=== PATIENT | female | born 1985 | race Caucasian/White ===

== ENCOUNTER → 2021-11-07 13:35 | Outpatient (CLI) | payer BC, SELFPAY ==
--- NOTE | ~2021-11-07 | US_ITS ---
US soft tissue chest 11/07/2021 13:54 Indication: Palpable soft tissue abnormality left upper chest Procedure: High-resolution Limited ultrasound of the area of palpable concern in the left chest Comparison: No prior studies for comparison. Findings: In the area of palpable concern there is an oval encapsulated slightly hyperechoic mass wit h horizontally oriented striations, compatible with lipoma measuring 2.4 x 1.9 x 0.7 cm. Impression: 1: Left chest wall mass corresponding to the palpable finding, most compatible with lipoma. Recommend follow-up ultrasound as clinically indicated. Reviewed, dictated and finalized at location B. Impression: 1: Left chest wall mass corresponding to the palpable finding, most compatible with lipoma. Recommend follow-up ultrasound as clinically indicated.
== END ==
PROVIDERS: PCP Physician Assistant; Visit Provider Physician Assistant
DX: R22.9 Localized swelling, mass and lump, unspecified (principal)
CPT/HCPCS: 76604

== ENCOUNTER 2024-10-04 08:34 | Outpatient (CLI) | payer BC, SELFPAY ==
--- OUTSIDE RECORDS SUMMARY | 2024-10-04 09:12 | XMS_ITS | Data Portability ---
Author Organization [facility] Address [address] [place] [address] Assessment No assessment recorded. Plan of Treatment Reminders Order Date Submit Date Provider Last Modified By Organization Details Last Modified Time Details Appointments ANY 15 2024 09:30A M ZAHEER Moore Not available Not available Not available Lab TSH + free T4, serum 2023 024 [employer] [facility], [address], [address], 03/11/2024 12:48:56 CMP, serum or plasma 2023 024 [employer] [facility], [address], [address], 03/11/2024 12:48:56 CBC w/ auto diff 2023 024 [employer] [facility], [address], [address], 03/11/2024 12:48:56 vitamin B12 + folate, serum or blood 2023 024 [employer] [facility], [address], [address], 03/11/2024 12:48:56 lipid panel, serum 2023 024 [employer] [facility], [address], [address], 03/11/2024 12:48:56 HbA1c (hemoglob in A1c), blood 2023 024 [facility], [address] [address], [place], [address], 03/11/2024 12:48:56 insulin, serum 2023 024 [facility], [address] [facility] [address], [place], [address], 03/11/2024 12:48:56 Referral None recorded. Procedures home sleep testing (PROC) 2023 024 [facility], [address] [facility], [place], [address], 09/30/2024 16:34:27 Surgeries None recorded. Imaging home sleep study 2023 024 [place] [id number] [facility] ([facility]), [facility] [place], [address], 08/02/2024 12:42:37 Medication Orders sertralin e 100 mg tablet 2023 024 [id number], [address], [place], [phone], 07/25/2024 10:55:26 Wegovy 1 mg/0.5 mL subcutane ous pen injector 2023 025 [facility] #[id number], [address], [place], [phone], 09/09/2024 18:27:22 Patient TargetsNo targets recorded. Patient Instructions Encounter Date Encounter Id Patient Instructions Last Modified By Organization Details Last Modified Time 12/16/2023 [id number] A healthy lifestyle: care instructions [email or web address] Not available 12/23/2023 13:44:26 Reason for Referral None Reported. Results Created Date Observation Date Name Description Value Unit Range Abnormal Flag Note LastModifiedBy Organization Detail LastModifiedTime Result Notes None recorded. Problems Name Problem SNOMED Code Status Onset Date Resolution Date Notes Provider Name and Address Organization Details Recorded Time Generalized anxiety disorder 65613519 Active 2023 ZAHEER Moore Attn: Accountin g,[address] [facility], [place], [address], [facility] 4 13:44:10 Sleep apnea 45097710 Active 2023 ZAHEER Moore Attn: Accountin g,[address] [facility], [place], [address], [facility] - [facility] 4 13:44:11 Body mass index 30+ - obesity 332631711 Active 2023 ZAHEER Moore Attn: Accountin g,[address] [facility], [place], [address], [facility] - [facility] 4 13:44:12 Obesity 608501379 Active 2023 ZAHEER Moore Attn: Accountin g,[address] [facility], [place], [address], [facility] - [facility] 4 13:44:28 Long-term drug therapy Active 2023 ZAHEER Moore Attn: Accountin g,[address] [facility], [place], [address], [place] - [facility] 4 10:54:35 Problem Notes None recorded. Procedures Surgical History Date Name Laterality Status Provider Name and Address Organization Details Recorded Time hernia repair completed Kade Whitlock [place] [facility] 12/16/2023 16:50:17 Imaging Results None recorded. Procedure Notes None recorded. Medical Equipment None Reported. Allergies No known drug allergies Medications Name Sig Start Date Stop Date Status Note LastModified by Organization Details LastModified Time tretinoin 0.025 % topical cream 12/15 completed Not Available Not Available Not Available minocycline 100 mg capsule 12/15 completed Not Available Not Available Not Available sertraline 100 mg tablet Take 1 tablet every day by oral route. active Not Available Not Available No t Available metronidazo le 500 mg tablet 07/25 completed Not Available Not Available Not Available propranolol 10 mg tablet Take 1 tablet every day by oral route as needed, for public speaking. active Not Available Not Available No t Available triamcinolo ne acetonide 0.025 % topical cream 12/15 completed Not Available Not Available Not Available tacrolimus 0.1 % topical ointment 07/25 completed Not Available Not Available Not Available triamcinolo ne acetonide 0.1 % topical ointment 07/25 completed Not Available Not Available Not Available scopolamine 1 mg over 3 days transdermal patch Apply 1 patch every 72 hours by transderm al route. 07/25 completed Not Available Not Available Not Available intrauterin e device (IUD) Take by intrauter ine route. active Not Available Not Available No t Available amoxicillin 875 mg-potassiu m clavulanate 125 mg tablet 07/25 completed Not Available Not Available Not Available clindamycin 1 % lotion 07/25 completed Not Available Not Available Not Available Simpesse 0.15 mg-30 mcg (84)/10 mcg(7) tablets,3 month dose pack 08/14 completed Not Available Not Available Not Available Wegovy 2.4 mg/0.75 mL subcutaneou s pen injector Inject by subcutane ous route for 28 days. 07/25 completed Not Available Not Available Not Available Wegovy 1.7 mg/0.75 mL subcutaneou s pen injector 12/15 completed Not Available Not Available Not Available Wegovy 1 mg/0.5 mL subcutaneou s pen injector Inject 1 mg every week by subcutane ous route. 09/09 completed Not Available Not Available Not Available Zepbound 5 mg/0.5 mL subcutaneou s pen injector Inject 5 mg every week by subcutane ous route. 2024 active Not Available Not Available Not Avai lable Zepbound 2.5 mg/0.5 mL subcutaneou s pen injector Inject 2.5 mg every week by subcutane ous route. 09/09 completed Not Available Not Available Not Available Vitals Date Recorded Body height Body mass index (BMI) Body weight Oxygen saturation Oxygen saturation in Arterial blood by Pulse oximetry Heart rate Respiratory rate Provider Name and Address Organization Details Last Updated DateTime 4 157.48 cm 34 kg/m2 81639.1 8 g 98 % 98 % 97 /min 20 /min Kade Whitlock MA [facility] 16:29:16 Date Recorded Systolic blood pressure Diastolic blood pressure Systolic blood pressure Diastolic blood pressure Provider Name and Address Organization Details Last Updated DateTime 12/16/2023 130 mm[Hg] 90 mm[Hg] 124 mm[Hg] 86 mm[Hg] ZAHEER Moore Attn: Accounting ,[address] [place], [address] , [facility] 16:52:36 Date Recorded Body height Body mass index (BMI) Body weight Respiratory rate Oxygen saturation Oxygen saturation in Arterial blood by Pulse oximetry Heart rate Systolic blood pressure Diastolic blood pressure Provider Name and Address Organization Details Last Updated DateTime 4 157.48 cm 35.5 kg/m2 80536.9 2 g 20 /min 99 % 99 % 72 /min 126 mm[Hg] 82 mm[Hg] Kade Whitlock MA [facility] 10:34:38 Date Recorded Systolic blood pressure Diastolic blood pressure Provider Name and Address Organization Details Last Updated DateTime 07/25/2024 120 mm[Hg] 80 mm[Hg] ZAHEER Moore Attn: Accounting, [place], [address], [facility] 07/25/2024 11:03:06 Social History Question Answer Notes LastModified by Organizat ion Details LastModified Time Tobacco Smoking Status Never Smoker Kade Whitlock MA [facility], [facility] 12/16/2023 16:27:22 Do You Have An Advance Directive? No Information not available 12/16/2023 What Is Your Level Of Alcohol Consumption? Occasional 2x A Week Information not available 12/16/2023 Are You Blind Or Do You Have Difficulty Seeing? No Near Sided Vison Information not available 12/16/2023 What Is Your Level Of Caffeine Consumption? Occasional 1 Cup Of Coffee Information not available 12/16/2023 In The 14 Days Before Symptom Onset, Have You Had Close Contact With A Laboratory-confir med COVID-19 While That Case Was Ill? No Information not available 12/16/2023 In The 14 Days Before Symptom Onset, Have You Had Close Contact With A Person Who Is Under Investigation For COVID-19 While That Person Was Ill? No Information not available 12/16/2023 Have You Been To An Area Known To Be High Risk For COVID-19? No Information not available 12/16/2023 Are You Currently Employed? Yes Information not available 12/16/2023 Are You Deaf Or Do You Have Serious Difficulty Hearing? No Information not available 12/16/2023 What Type Of Diet Are You Following? REGULAR Information not available 12/16/2023 What Is The Highest Grade Or Level Of School You Have Completed Or The Highest Degree You Have Received? 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 No Information not available 12/16/2023 What Was The Date Of Your Most Recent Tobacco Screening? 07/25/2024 Information not available 07/25/2024 Do You Use Your Seat Belt Or Car Seat Routinely? Yes Information not available 12/16/2023 Do You Have Smoke And Carbon Monoxide Detectors In Your Home? Yes Information not available 12/16/2023 Do You Use Any Illicit Or Recreational Drugs? No Information not available 12/16/2023 Do You Use Sunscreen Routinely? Yes Information not available 12/16/2023 Has Tobacco Cessation Counseling Been Provided? Yes Information not available 12/16/2023 On What Date Was Tobacco Cessation Counseling Provided? 07/25/2024 Information not available 07/25/2024 Do You Or Have You Ever Used Any Other Forms Of Tobacco Or Nicotine? No Information not available 12/16/2023 Sex: Female Functional Status Question Answer Note LastModified by Organizat ion Details LastModified Time Are you able to care for yourself? Yes Information not available 12/16/2023 What is your exercise level? Moderate 3-4x a week Information not available 12/16/2023 Mental Status None recorded. Family History Relationship Description Onset Age of this Age Resolved Age Notes LastModified by Organization Details LastModified Time Maternal Uncle Alcohol abuse [email or web address] Not available 2023 16:50:33 Paternal Uncle Alcohol abuse tcarterma Not available 2023 16:50:33 Son Attention deficit hyperactivit y disorder tcarterma Not available 12/15 16:50:39 Mother Depressive disorder tcarterma Not available 2023 16:50:44 Mother Disorder of thyroid gland tcarterma Not available 2023 16:50:51 Mother Heart disease tcarterma Not available 2023 16:50:57 Mother Hypertensive disorder tcarterma Not available 2023 16:51:05 Father Heart disease tcarterma Not available 2023 16:50:57 Father Hypertensive disorder tcarterma Not available 2023 16:51:05 Medical History Condition Response Coronary Artery Disease N Other N High Blood Pressure N Atrial Fibrillation N Kidney or Bladder Problems N Thyroid Problems N GI Problems N Depression N COPD N Blood Clots N Skin Problems Y Anemia N Heart Attack (ME) N Anxiety Disorder N Diabetes N Muscle, Joint, or Bone Problems N Seizures/Epilepsy N Acid Reflux (GERD) N Cancer N Stroke N Asthma N Allergies N High Cholesterol N Hepatitis N Liver Disease N Headaches Y Heart Failure N Osteoporosis N Gynecological History Statement/Question Response Menses Monthly N Current Control Method BCPs Obstetrics History GPAL:G 2 P 2 0 0 2 Type Value Full Term 2 Induced 0 Spontaneous 0 Premature 0 Living 2 Total 2 Immunizations Vaccine Type Date Status Note Provider Nam e and Address Organization Details Recorded Time Influenza, split virus, quadrivalent, preservative 9 completed Kade Whit[place], [place] [facility] 07/20/2024 09:04:07 Rho(D)-IG 8 completed Kade [place] [facility] 07/20/2024 09:04:07 Rho(D)-IG 8 completed Kade [place] [facility] 07/20/2024 09:04:07 Influenza, MDCK, quadrivalent, PF 1 completed Kade Whit[place] [facility] 07/20/2024 09:04:07 COVID-19, mRNA, LNP-S, PF, 100 mcg/0.5mL dose or 50 mcg/0.25mL dose 1 completed Kade [place] [facility] 07/20/2024 09:04:07 COVID-19, mRNA, LNP-S, PF, 100 mcg/0.5mL dose or 50 mcg/0.25mL dose 1 completed Kade Whit[place] [facility] 07/20/2024 09:04:07 COVID-19, mRNA, LNP-S, PF, 100 mcg/0.5mL dose or 50 mcg/0.25mL dose 1 completed Kade [place] [facility] 07/20/2024 09:04:07 pneumococcal polysaccharide PPV23 6 completed Kade [place] [facility] 07/20/2024 09:04:07 Tdap 4 completed [place]ade [place] [facility] 07/20/2024 09:04:07 Tdap 8 completed Kade [place] [facility] 07/20/2024 09:04:07 Tdap 3 completed Kade [place] [facility] 07/20/2024 09:04:07 Influenza, split virus, trivalent, PF 7 completed [place]ade [place] [facility] 07/20/2024 09:04:07 Hib (PRP-OMP) 6 completed Kade [place] [facility] 07/20/2024 09:04:07 Influenza, split virus, quadrivalent, PF 0 completed Kade Whitlock MA null, [facility] 07/20/2024 09:04:07 Influenza, split virus, quadrivalent, PF 2 completed Kade Whitlock MA null, [facility] 07/20/2024 09:04:07 Influenza, split virus, quadrivalent, PF 3 completed Kade Whitlock MA null, [facility] 07/20/2024 09:04:07 Past Encounters Encounter ID Performer Location Encounter Start Date Encounter Closed Date Diagnosis/Indication Diagnosis SNOMED-CT Code Diagnosis ICD10 Code Diagnosis Note [id number] ZAHEER Moore [facility] [address] [place] [address] 12/16/2023 16:15:23 12/16/2023 16:59:35 Adult health examination 296868468 Z00.01 annual wellness completed Sleep apnea 09411993 G47 .30 refer for home sleep study Generalize d anxiety disorder 85156977 F41.1 stable on sertraline 100mg daily Body mass index 30+ - obesity 883968254 Z68.34 fasting insulin due Cholesterol screening 27 8910426 Z13.220 fasting lipids due Diabetes m ellitus screening 466498150 Z13.1 a1c screening due Long-term drug therapy 298914405 Z79.899 cmp, cbc and b12, folate labs are due Thyroid di sorder screening 662252875 Z13.29 screening thyroid panel due Obesity 596493870 E66.9 discussed healthy diet, exercise, controllin g carbohydra maycol and added sugars in the diet [id number] ZAHEER Moore [facility] [employer] [address] [place] [address] 07/25/2024 10:23:06 07/25/2024 11:07:22 Generalized anxiety disorder 09090075 F41.1 stable on sertraline 100mg daily. Refill provided Sleep apnea 31125906 G47 .30 refer for home sleep study order was given at the last appointmen t and given again today Obesity 388651077 E66.9 discussed healthy diet, exercise, controllin g carbohydra maycol and added sugars in the diet Body mass index 30+ - obesity 909787187 Z68.35 Decreased down to Wegovy 1 mg weekly she felt like she had better weight loss and appetite suppressio n on this dose. Long-term drug therapy 304281331 Z79.899 Follow-up again in 6 months routine labs will be ordered then for annual review Health Concerns Section Related Observation LastModified by Organization Detai ls LastModified Time None Recorded Concern Status LastModified by Organization Details LastModified Time None Recorded Advance Directives Directive N: Payers Encounter Date Sequence Insurance Name Policy Number Policy William Covered Member ID William Member ID Guarantor Name 12/16/2023 1 [employer] [id number] Shadia Senia [id number] Shadia Senia 07/25/2024 1 [place] [id number] Shadia Senia [id number] Shadia Senia Notes Date Note Type Note Provider Name and Address Organization Details Recorded Time 12/16/2023 text/html Anxiety/Depressi onR eported bypatient.Quality:s ymptoms improved Severity:denies suicidal ideations; able to maintain relationships; does not interfere with activities of daily living Duration:stablizing Context:no major life stressors Modifying Factors:medications as directed Associated Symptoms:denies homicidal ideations; no significant weight gain; no significant weight loss; no shortness of breath; mood good; no anxiety; no crying spells; sleeping well; appetite good; energy good; no apathy; maintaining functionalityNotes: stable on sertraline 100mg daily. on Wegovy 2.4mg weekly dosing with great weight loss and maintaining now at this dose. keeping appetite controlled. ZAHEER Moore Attn: Accounting,[address] [facility], [place], [address], [facility] 12/23/2023 13:44:46 07/25/2024 text/html Anxiety/Depressi onR eported bypatient.Quality:s ymptoms improved Severity:denies suicidal ideations; able to maintain relationships; does not interfere with activities of daily living Duration:stablizing Context:no major life stressors Modifying Factors:medications as directed Associated Symptoms:denies homicidal ideations; no significant weight gain; no significant weight loss; no shortness of breath; mood good; no anxiety; no crying spells; sleeping well; appetite good; energy good; no apathy; maintaining functionalityNotes: stable on sertraline 100mg daily. on Wegovy 2.4mg weekly dosing with no further weight loss. She has become completely at a stand still with no weight loss actually a couple lb gain. ZAHEER Moore Attn: Accounting,[address] [place], [address], [facility] 07/25/2024 11:24:36 OBGyn Episode No OBEpisode recorded.
--- NOTE | 2024-10-25 15:49 | WPDHOMESLEEP ---
Sleep Study - Home Unattended Date of Study: 10/04/24 Ordering Provider: Lala Moctezuma, ROLA Interpreting Provider: Sandra Haley, DO Home Sleep Study Type: Watch PAT Height: 1.57 m Weight: 83.915 kg Body Mass Index: 33.8 Neck Circumference (inches): 14.5 [place]: 13 Reason for Sleep Study Daytime hypersomnia Sleep History The patient is a 39-year-old female who had a sleep study ordered by her primary care for evaluation of sleep apnea. The patient admits to snoring loudly, excessive daytime sleepiness, interruptions of breathing while asleep, trouble falling asleep, and trouble maintaining sleep. The patient admits to choking or gasping at night. She denies having trouble breathing on her back. She does have morning headaches. She denies having a dry or sore mouth/throat in the morning. She does have nocturnal heartburn. She urinates more than 3 times throughout the night. She does have difficulty returning to sleep if she wakes up throughout the night. She denies any hypnotic or sedative use. She does feel anxious about sleep. She does feel tired or sleepy during the day. She does feel tired in the morning. She does have the urge to fall asleep during the day. She denies feeling drowsy while driving. She denies sleep paralysis, cataplexy, and hypnagogic/hypnopompic hallucinations. She denies clenching or grinding her teeth. She denies kicking or jerking her legs excessively. She denies having a restless feeling in her legs. She goes to bed at 11 p.m. on workdays and at midnight on her days off. It takes her 45 minutes to fall asleep on workdays and 1 hour on her days off. She gets 6 hours of sleep on workdays and 7 hours of sleep on her days off. Her sleep is a little more restorative on her days off. She denies taking any planned naps. She denies dream enactment behavior. She denies sleepwalking. She consumes 1 to 2 cups of a caffeinated beverage per day. She consumes more than 3 alcoholic beverages 1 to 2 nights per week. She denies tobacco use. She exercises 3-4 nights per week. [facility] Surgical History Surgical History H/O hernia repair Family History Family History Mother Hypertension Heart disease Father Hypertension Heart disease Grandparent Breast cancer Social History Social History Smoking status: Never smoker Alcohol intake: current Substance use: never Living arrangements: with family Occupation/Education: occupation Gender identity (if verbalized by the patient): Female Sexual Orientation (if Verbalized by the Patient): Straight or Heterosexual Medications Home Medications ?Medication ?Instructions ?Recorded ?Confirmed ?Type propranolol 10 mg tablet 10 mg PO 07/06/23 History semaglutide (weight loss) 1.7 mg subcut 07/06/23 History mg/0.75 mL subcutaneous pen injector (Wegovy) L norgest/E estradiol-E estrad 1 tablet PO DAILY #182 ea 08/07/23 Rx 0.15 mg-30 mcg (84)/10 mcg(7) tabs,3mos (Simpesse) sertraline 100 mg tablet 100 mg PO DAILY #90 tabs 01/08/24 Rx Sleep Procedure The sleep study was completed using 2NGageUT a technically adequate device with seven channels: peripheral arterial tone, actigraphy, body position, snore, respiratory movement, pulse oximetry, sleep staging, and heart rate. Prior to using the device, the patient received verbal and written instructions for its application and was provided with the help desk phone number for additional telephonic instruction with 24-hour availability of qualified personnel to answer questions. The study was scored using CMS guidelines. Sleep Architecture The total recording time is 9 hrs, 44 min. The total sleep time is 8 hrs, 9 min. Sleep latency is 20 minutes. REM latency is 142 minutes. The patient had 13 episodes of waking. Sleep architecture shows 16.9% deep sleep, 61.3% light sleep, and (as % Total Sleep Time) showed NREM (Light 61.3%; Deep 16.9%), and a 21.8% stage REM. The patient spent 39.4% of total sleep time in the supine position. Sleep efficiency was 83.73. Respiratory Analysis The overall AHI (pAHI 4%:) is 6.1. The overall AHI (pAHI 3%:) is 15.0. The central AHI is 0.1. The AHI was 18.8 in NREM and 1.1 in REM sleep. The AHI was 34.1 in Supine and 2.5 in Non-supine sleep. Percent of Atilio Kate respirations is 0.0. Oximetry Data The oxygen desaturation index (MARC 4%:) is 3.3. The mean saturation is 95%, and the lowest saturation is 90%. Time spent with saturation < 88% is 0.0 minutes. Snoring Profile Snoring average intensity is 43 dB. The patient snored above 45 decibels for 113.7 minutes, 23.3% of sleep time. Cardiac Profile The average pulse rate is 64 beats per minutes. The lowest pulse rate is 45 bpm. The highest pulse rate reported is 109 bpm. Suspected Afib total duration is 0:00:40, (h:m:sec). The longest Afibevent duration is 0:00:40. A suspected arrhythmia flagged in the sleep report does not necessarily imply an arrhythmia condition is present, but rather suggests that further investigation should be considered. A-Fib events < 60 seconds may be artifact. Premature beats occur <0.1 per minute. Assessment and Plan Assessment and Plan (1) CYRIL (obstructive sleep apnea): Code(s): G47.33 - Obstructive sleep apnea (adult) (pediatric) Status: Acute Assessment and Plan: The patient had an overall AHI of 6.1 with desaturation down to 90%. This is consistent with mild sleep apnea. Due to the patient's excessive daytime sleepiness, she qualifies for treatment. I recommend that the patient be prescribed AutoPAP 5-15 cm H2O, CPAP mask/filters/tubing and heated humidity. A mandibular advancement device is also an acceptable treatment option. This should be used with all episodes of sleep.? Compliance should be reviewed within 31-90 days of starting therapy for usage greater than 4 hours per night greater than 70% of the nights. The patient should be asked about symptoms such as?excessive daytime sleepiness, quality of sleep, decreased nocturia, increased?mental functioning such as memory, mood, and concentration. Data The data obtained during this sleep study is adequate for interpretation. Certification This sleep study has been reviewed by a board certified sleep medicine physician.
[2024-10-25 15:50] VITALS: BMI 33.8
== END 2024-10-06 11:38 | disposition home or self-care (01) ==
LOC: ANHCSM 08:35
PROVIDERS: PCP Physician Assistant; Visit Provider Physician Assistant
DX: G47.33 Obstructive sleep apnea (adult) (pediatric) (principal)
CPT/HCPCS: 95800

== ENCOUNTER 2024-10-18 15:58 | Outpatient (CLI) | payer BC, SELFPAY ==
--- NOTE | ~2024-10-18 | MM_ITS ---
EXAMINATION: MM screening cesar BI w cora HISTORY: Screening mammogram TECHNIQUE: Craniocaudal and mediolateral oblique 3-D tomosynthesis images were obtained and synthetic 2-D images were generated. CAD analysis was submitted and interpreted. COMPARISON: No prior mammogram is available for comparison at this institution. BREAST PARENCHYMAL COMPOSITION:Not Dense. There are scattered areas of fibroglandular density. FINDINGS: There is asymmetry in the upper, outer left breast. No suspicious parenchymal abnormality t he right breast seen. No suspicious microcalcifications. IMPRESSION: Upper, outer left breast asymmetry. Spot compression views and possible ultrasound are recommended f or further evaluation. BI-RADS Category 0: Incomplete: Needs additional imaging evaluation. Reviewed, dictated and finalized at location . CLASSIFIER IMPRESSION: Upper, outer left breast asymmetry. Spot compression views and possible ultras ound are recommended for further evaluation. BI-RADS Category 0: Incomplete: Needs additional imaging evaluation.
--- OUTSIDE RECORDS SUMMARY | 2024-10-18 18:24 | XMS_ITS | Data Portability ---
Author Organization [facility] Address [address] [place] [address] Assessment No assessment recorded. Plan of Treatment Reminders Order Date Submit Date Provider Last Modified By Organization Details Last Modified Time Details Appointments ANY 15 2024 09:30A M ZAHEER Moore Not available Not available Not available Lab TSH + free T4, serum 2023 024 [facility] [employer] [facility], [address], [address], 03/11/2024 12:48:56 CMP, serum or plasma 2023 024 [facility] [employer] [facility], [address], [address], 03/11/2024 12:48:56 CBC w/ auto diff 2023 024 [facility] [employer] [facility], [address], [address], 03/11/2024 12:48:56 vitamin B12 + folate, serum or blood 2023 024 [facility] [employer] [facility], [address], [address], 03/11/2024 12:48:56 lipid panel, serum 2023 024 [facility] [employer] [facility], [address], [address], 03/11/2024 12:48:56 HbA1c (hemoglob in A1c), blood 2023 024 [facility], [address] [address], [place], [address], 03/11/2024 12:48:56 insulin, serum 2023 024 [facility], [address] [facility] [address], [place], [address], 03/11/2024 12:48:56 Referral None recorded. Procedures home sleep testing (PROC) [address] [facility], [address] [place], [address], 10/11/2024 15:37:29 Surgeries None recorded. Imaging home sleep study 2023 024 [place] [address] [facility] ([facility]), [facility] [place], [address], 08/02/2024 12:42:37 Medication Orders sertralin e 100 mg tablet 2023 024 [id number], [address] [place], [place], [id number], 07/25/2024 10:55:26 Wegovy 1 mg/0.5 mL subcutane ous pen injector 2023 025 [id number], [address] [place], [place], [id number], 09/09/2024 18:27:22 Patient TargetsNo targets recorded. Patient Instructions Encounter Date Encounter Id Patient Instructions Last Modified By Organization Details Last Modified Time 12/16/2023 [id number] A healthy lifestyle: care instructions [email or web address] Not available 12/23/2023 13:44:26 Reason for Referral None Reported. Results Created Date Observation Date Name Description Value Unit Range Abnormal Flag Note LastModifiedBy Organization Detail LastModifiedTime Result Notes None recorded. Problems Name Problem SNOMED Code Status Onset Date Resolution Date Notes Provider Name and Address Organization Details Recorded Time Generalized anxiety disorder 92313262 Active 2023 ZAHEER Moore Attn: Accountin g,[address] [facility], [place], [address], [facility] 4 13:44:10 Sleep apnea 30582331 Active 2023 ZAHEER Moore Attn: Accountin g,[address] [facility], [place], [address], [facility] 4 13:44:11 Body mass index 30+ - obesity 227939973 Active 2023 ZAHEER Moore Attn: Accountin g,[address] [facility], [place], [address], [facility] 4 13:44:12 Obesity 054585300 Active 2023 ZAHEER Moore Attn: Accountin g,[address] [facility], [place], [address], [facility] 4 13:44:28 Long-term drug therapy Active 2023 ZAHEER Moore Attn: Accountin g,[address] [facility], [place], [address], [facility] 4 10:54:35 Problem Notes None recorded. Procedures Surgical History Date Name Laterality Status Provider Name and Address Organization Details Recorded Time hernia repair completed Kade Whitlock [place] [facility] 12/16/2023 16:50:17 Imaging Results None [...] Updated DateTime 4 157.48 cm 34 kg/m2 57116.1 8 g 98 % 98 % 97 /min 20 /min Kade Whitlock MA [facility] 16:29:16 Date Recorded Systolic blood pressure Diastolic blood pressure Systolic blood pressure Diastolic blood pressure Provider Name and Address Organization Details Last Updated DateTime 12/16/2023 130 mm[Hg] 90 mm[Hg] 124 mm[Hg] 86 mm[Hg] ZAHEER Moore Attn: Accounting ,[address] [place], [address] [facility] 16:52:36 Date Recorded Body height Body mass index (BMI) Body weight Respiratory rate Oxygen saturation Oxygen saturation in Arterial blood by Pulse oximetry Heart rate Systolic blood pressure Diastolic blood pressure Provider Name and Address Organization Details Last Updated DateTime 4 157.48 cm 35.5 kg/m2 29939.9 2 g 20 /min 99 % 99 % 72 /min 126 mm[Hg] 82 mm[Hg] Kade Whitlock MA [facility] 10:34:38 Date Recorded Systolic blood pressure Diastolic blood pressure Provider Name and Address Organization Details Last Updated DateTime 07/25/2024 120 mm[Hg] 80 mm[Hg] ZAHEER Moore Attn: Accounting, [place], [address], [facility] 07/25/2024 11:03:06 Social History Question Answer Notes LastModified by Organizat ion Details LastModified Time Tobacco Smoking Status Never Smoker Kade Whitlock MA [facility], [facility] 12/16/2023 16:27:22 Do You Have An Advance [...] Or The Highest Degree You Have Received? [id number] Information not available 12/16/2023 What Is Your [...] Response Coronary Artery Disease N Other N Atrial Fibrillation N High Blood Pressure N Kidney or Bladder Problems N Thyroid Problems N GI Problems N Depression N COPD N Blood Clots N Skin Problems Y Anemia N Heart Attack ([place]) N Anxiety Disorder N Diabetes N Muscle, [...] PF 0 completed Kade Whitlock MA null, [place] [facility] 07/20/2024 09:04:07 Influenza, split virus, quadrivalent, PF 2 completed Kade Whitlock MA null, [place] [facility] 07/20/2024 09:04:07 Influenza, split virus, quadrivalent, PF 3 completed Kade Whitlock [place] null, [place] [facility] [place] 07/20/2024 09:04:07 Past Encounters Encounter ID Performer Location Encounter Start Date Encounter Closed Date Diagnosis/Indication Diagnosis SNOMED-CT Code Diagnosis ICD10 Code Diagnosis Note [id number] ZAHEER Moore [facility] [employer] [address] [place] [address] 12/16/2023 16:15:23 12/16/2023 16:59:35 Adult health examination 957485599 Z00.01 annual wellness completed Sleep apnea 88646952 G47 .30 refer for home sleep study Generalize d anxiety disorder 36088642 F41.1 stable on sertraline 100mg daily Body mass index 30+ - obesity 396196936 Z68.34 fasting insulin due Cholesterol screening 27 2826304 Z13.220 fasting lipids due Diabetes m ellitus screening 887640846 Z13.1 a1c screening due Long-term drug therapy 308572970 Z79.899 cmp, cbc and b12, folate labs are due Thyroid di sorder screening 931320374 Z13.29 screening thyroid panel due Obesity 504129625 E66.9 discussed healthy diet, exercise, controllin g carbohydra maycol and added sugars in the diet [id number] ZAHEER Moore [facility] [employer] [address] [place] [address] 07/25/2024 10:23:06 07/25/2024 11:07:22 Generalized anxiety disorder 70129740 F41.1 stable on sertraline 100mg daily. Refill provided Sleep apnea 07121826 G47 .30 refer for home sleep study order was given at the last appointmen t and given again today Obesity 974335778 E66.9 discussed healthy diet, exercise, controllin g carbohydra maycol and added sugars in the diet Body mass index 30+ - obesity 510852095 Z68.35 Decreased down to Wegovy 1 mg weekly she felt like she had better weight loss and appetite suppressio n on this dose. Long-term drug therapy 274681088 Z79.899 Follow-up again in 6 months routine [...] ID Guarantor Name 12/16/2023 1 [place] [id number] Shadia Senia [id number] 39 Shadia Senia 07/25/2024 1 [place] [id number] Shadia Senia [id number] Shadia Senia Notes Date Note Type [...] appetite controlled. ZAHEER Moore Attn: Accounting,[address] [facility], [place], [address], [facility] 12/23/2023 13:44:46 07/25/2024 text/html Anxiety/Depressi onR eported [...] lb gain. ZAHEER Moore Attn: Accounting,[address] [place], [address], [facility] 07/25/2024 11:24:36 OBGyn Episode No OBEpisode recorded.
--- OUTSIDE RECORDS SUMMARY | 2024-10-18 18:24 | XMS_ITS ---
Author Organization [email or web address] Address [address] [facility] [place] [address] Care Team Providers Care Nuclear Physics Teacher Name Role Phone Unavailable Primary Care Physician Unavailab le Medications Name Start Date Expiration Date SIG Comments Mirena 21 mcg/24 hr (up to 8 years) 52 mg intrauterine device 01/08/2024 01/09/2024 place 1 device by intrauterine route once Payers Insurance Name Company Name Plan Name Plan Number Policy Number Policy Group Number [place] Date [id number] N/A History of Encounters Visit Date Visit Type Provider 01/08/2024 My-IUD Tele-Med Consult Dr. Esteban Calvert MD
== END 2024-10-18 15:59 | disposition home or self-care (01) ==
PROVIDERS: PCP Physician Assistant; Visit Provider Obstetrics & Gynecology
DX: Z12.31 Encounter for screening mammogram for malignant neoplasm of breast (principal); R92.8 Other abnormal and inconclusive findings on diagnostic imaging of breast
CPT/HCPCS: 77063; 77067

== ENCOUNTER 2024-11-18 12:55 | Outpatient (CLI) | payer BC, SELFPAY ==
--- NOTE | ~2024-11-18 | MMUS_ITS ---
EXAMINATION: MM diagnostic [facility] LT w cora, US breast LT limited HISTORY: 39-year-old woman with no significant family history personal history of breast cancer prese nts for diagnostic evaluation of the upper outer left breast asymmetry seen on screening baseline [facility] mography dated 10/18/2024 TECHNIQUE: Additional 3-D tomosynthesis images of the left breast were performed and synthetic 2-D im ages were generated. CAD analysis was submitted and interpreted. High resolution focused left breast ultrasound was performed. COMPARISON: 10/18/2024 BREAST PARENCHYMAL COMPOSITION:Not Dense. There are scattered areas of fibroglandular density. FINDINGS: MAMMOGRAPHIC FINDINGS: No discrete abnormality is identified on spot compression views to correspond to the left breast asym metry. Ultrasound examination will be performed for confirmation. ULTRASOUND: Sonographic evaluation of the upper outer quadrant of the left breast demonstrates patches of dense t issue without a cystic or solid lesion of concern. IMPRESSION: No mammographic/tomographic or sonographic evidence to suggest the presence of malignancy. Resumption of yearly mammography is recommended BI-RADS Category 2: Benign finding(s). Reviewed, dictated and finalized at location A. IMPRESSION: No mammographic/tomographic or sonographic evidence to suggest the presence of malignancy. Resumption of yearly mammography is recommended BI-RADS Category 2: Benign finding(s).
--- OUTSIDE RECORDS SUMMARY | 2024-11-18 13:07 | XMS_ITS ---
Author Organization [employer] Address [address] [facility] [place] [address] Care Team Providers Care Stock Checker Name Role Phone Unavailable Primary Care Physician Unavailab le Medications Name Start Date Expiration Date SIG Comments Mirena 21 mcg/24 hr (up to 8 years) 52 mg intrauterine device 01/08/2024 01/09/2024 place 1 device by intrauterine route once Payers Insurance Name Company Name Plan Name Plan Number Policy Number Policy Group Number [place] Date [place] [id number] N/A History of Encounters Visit Date Visit Type Provider 01/08/2024 My-IUD Tele-Med Consult Dr. Esetban Calvert MD
--- OUTSIDE RECORDS SUMMARY | 2024-11-18 13:07 | XMS_ITS | Data Portability ---
Author Organization [facility] Address [address] [place] [address] Assessment No assessment recorded. Plan of Treatment Reminders Order Date Submit Date Provider Last Modified By Organization Details Last Modified Time Details Appointments ANY 15 2024 09:30A M ZAHEER Moore Not available Not available Not available Lab TSH + free T4, serum 2023 024 [facility], [address], [address], 03/11/2024 12:48:56 CMP, serum or plasma 2023 024 [facility], [address], [address], 03/11/2024 12:48:56 CBC w/ auto diff 2023 024 [facility], [address], [address], 03/11/2024 12:48:56 vitamin B12 + folate, serum or blood 2023 024 [facility], [address], [address], 03/11/2024 12:48:56 lipid panel, serum 2023 024 [facility], [address], [address], 03/11/2024 12:48:56 HbA1c (hemoglob in A1c), blood 2023 024 [facility], [address] [address], [place], [address], 03/11/2024 12:48:56 insulin, serum 2023 024 [email or web address], [address] [facility] [address], [place], [address], 03/11/2024 12:48:56 Referral None recorded. Procedures home sleep testing (PROC) 2023 024 [facility], [facility] [place], [address], 10/26/2024 14:05:19 Surgeries None recorded. Imaging home sleep study 2023 024 [place] [address] [facility] ([facility]), [facility] [place], [address], 08/02/2024 12:42:37 Medication Orders sertralin e 100 mg tablet 2023 024 [id number], [address], [place], [phone], 07/25/2024 10:55:26 Wegovy 1 mg/0.5 mL subcutane ous pen injector 2023 025 [id number], [address], [place], [phone], 09/09/2024 18:27:22 Patient TargetsNo targets recorded. Patient Instructions Encounter Date Encounter Id Patient Instructions Last Modified By Organization Details Last Modified Time 12/16/2023 [id number] A healthy lifestyle: care instructions [email or web address] Not available 12/23/2023 13:44:26 Reason for Referral None Reported. Results Created Date Observation Date Name Description Value Unit Range Abnormal Flag Note LastModifiedBy Organization Detail LastModifiedTime Result Notes None recorded. Problems Name Problem SNOMED Code Status Onset Date Resolution Date Notes Provider Name and Address Organization Details Recorded Time Generalized anxiety disorder 63735825 Active 2023 ZAHEER Moore Attn: Accounttre g,[address] [facility], [place], [address], [facility] 4 13:44:10 Sleep apnea 15097871 Active 2023 ZAHEER Moore Attn: Accountin g,[address] [facility], [place], [address], [facility] - [facility] 4 13:44:11 Body mass index 30+ - obesity 355213203 Active 2023 ZAHEER Moore Attn: Accountin g,[address] [facility], [place], [address], [facility] 4 13:44:12 Obesity 944054042 Active 2023 ZAHEER Moore Attn: Accountin g,[address] [facility], [place], [address], [facility] 4 13:44:28 Long-term drug therapy Active 2023 ZAHEER Moore Attn: Accountin g,[address] [facility], [place], [address], [facility] 4 10:54:35 Problem Notes None recorded. Procedures Surgical History Date Name Laterality Status Provider Name and Address Organization Details Recorded Time hernia repair completed Kade Whitlock MA [facility] 12/16/2023 16:50:17 Imaging Results None [...] 5 mg/0.5 mL subcutaneou s pen injector ADMINISTE R 5 MG UNDER THE SKIN EVERY WEEK 2024 active Not Available Not Available Not [...] Updated DateTime 4 157.48 cm 34 kg/m2 63915.1 8 g 98 % 98 % 97 /min 20 /min Kade Whitlock MA [facility] 16:29:16 Date Recorded Systolic blood pressure Diastolic blood pressure Systolic blood pressure Diastolic blood pressure Provider Name and Address Organization Details Last Updated DateTime 12/16/2023 130 mm[Hg] 90 mm[Hg] 124 mm[Hg] 86 mm[Hg] ZAHEER Moore Attn: Accounting ,[address] [place], [address] , [facility] 16:52:36 Date Recorded Body height Body mass index (BMI) Body weight Respiratory rate Oxygen saturation Oxygen saturation in Arterial blood by Pulse oximetry Heart rate Systolic blood pressure Diastolic blood pressure Provider Name and Address Organization Details Last Updated DateTime 4 157.48 cm 35.5 kg/m2 50443.9 2 g 20 /min 99 % 99 % 72 /min 126 mm[Hg] 82 mm[Hg] Kade Whitlock MA [facility] 10:34:38 Date Recorded Systolic blood pressure Diastolic blood pressure Provider Name and Address Organization Details Last Updated DateTime 07/25/2024 120 mm[Hg] 80 mm[Hg] ZAHEER Moore Attn: Accounting, [place], [address], [facility] 07/25/2024 11:03:06 Social History Question Answer Notes LastModified by Organizat ion Details LastModified Time Tobacco Smoking Status Never Smoker Kade Whitlock MA null, [facility] 12/16/2023 16:27:22 Do You Have An [...] Or The Highest Degree You Have Received? [id number] Information not available 12/16/2023 What Is Your [...] Skin Problems Y Anemia N Heart Attack (MS) N Anxiety Disorder N Diabetes N Muscle, [...] - [facility] 07/20/2024 09:04:07 Rho(D)-IG 8 completed ARACELIS [place], [place] - [facility] 07/20/2024 09:04:07 Rho(D)-IG 8 [...] PF 0 completed Kade Whit[place] [facility] 07/20/2024 09:04:07 Influenza, split virus, quadrivalent, PF 2 completed Kade [place] [facility] 07/20/2024 09:04:07 Influenza, split virus, quadrivalent, PF 3 completed Kade Whit[place] [facility] 07/20/2024 09:04:07 Past Encounters Encounter ID Performer Location Encounter Start Date Encounter Closed Date Diagnosis/Indication Diagnosis SNOMED-CT Code Diagnosis ICD10 Code Diagnosis Note [id number] ZAHEER Moore [facility] [email or web address] - [place] [address] [place] [address] 12/16/2023 16:15:23 12/16/2023 16:59:35 Adult health examination 493678279 Z00.01 annual wellness completed Sleep apnea 50812570 G47 .30 refer for home sleep study Generalize d anxiety disorder 60156403 F41.1 stable on sertraline 100mg daily Body mass index 30+ - obesity 084437312 Z68.34 fasting insulin due Cholesterol screening 27 5817313 Z13.220 fasting lipids due Diabetes m ellitus screening 962140608 Z13.1 a1c screening due Long-term drug therapy 193208155 Z79.899 cmp, cbc and b12, folate labs are due Thyroid di sorder screening 362300311 Z13.29 screening thyroid panel due Obesity 669762862 E66.9 discussed healthy diet, exercise, controllin g carbohydra maycol and added sugars in the diet [id number] ZAHEER Moore [facility] [employer] [facility] - [place] [address] [place] [address] 07/25/2024 10:23:06 07/25/2024 11:07:22 Generalized anxiety disorder 72486060 F41.1 stable on sertraline 100mg daily. Refill provided Sleep apnea 56724703 G47 .30 refer for home sleep study order was given at the last appointmen t and given again today Obesity 713798928 E66.9 discussed healthy diet, exercise, controllin g carbohydra maycol and added sugars in the diet Body mass index 30+ - obesity 042706504 Z68.35 Decreased down to Wegovy 1 mg weekly she felt like she had better weight loss and appetite suppressio n on this dose. Long-term drug therapy 721139269 Z79.899 Follow-up again in 6 months routine [...] ID Guarantor Name 12/16/2023 1 [employer] [id number] Shadia Senia [id number] 39 Shadia Senia 07/25/2024 1 [employer] [id number] Shadia Senia [id number] 39 Shadia Senia Notes Date Note Type [...] appetite controlled. ZAHEER Moore Attn: Accounting,[address] [facility], [place], [address], [facility] - [facility] 12/23/2023 13:44:46 07/25/2024 text/html Anxiety/Depressi onR eported [...] lb gain. ZAHEER Moore Attn: Accounting,[address] [place], [address], [facility] 07/25/2024 11:24:36 OBGyn Episode No OBEpisode recorded.
== END 2024-11-18 12:56 | disposition home or self-care (01) ==
LOC: ANHIMG 12:57
PROVIDERS: PCP Physician Assistant; Visit Provider Obstetrics & Gynecology
DX: R92.8 Other abnormal and inconclusive findings on diagnostic imaging of breast (principal)
CPT/HCPCS: 76642; 77061; 77065; G0279